=== PATIENT | female | born 1965 | race Caucasian/White ===

== ENCOUNTER → 2025-06-11 | Outpatient (CLI) | payer OTHER, SELFPAY ==
--- NOTE | 2025-06-11 11:00 | XR_ITS ---
Examination: CT soft tissue neck, with intravenous contrast. 2-D coronal reconstructions. 2-D sagittal reconstructions. Date and time of exam :June 11, 2025 1340 hours INDICATIONS: Palpable lump left side of the neck note is beginning December 2024. CTDI: vol (mGy):10.7 DLP: (mGycm):296 Technique: 1.25 mm axial sections of the neck of the obtained. Coronal and sagittal reconstructions have been obtained. Intravenous contrast administered 50 cc Isovue-[id number]. Low dose protocols were performed. One or more of the following dose reduction techniques were used; automated exposure control, adjustment of the mA and/or KV according to patient size, use of iterative reconstruction technique. Findings: Maxillary antra are clear Symmetrical submandibular glands There are bilateral cervical lymph nodes, the largest in the left carotid triangle region is 11 mm right carotid triangle region 9 mm Submental lymph nodes, the largest on the left side is 10 mm on the right side 9 mm Symmetrical submandibular glands The larynx appears normal Calcified 10 mm left thyroid nodule Normal epiglottis IMPRESSION: Significant cervical lymphadenopathy as above, clinical correlation advised
== END | disposition home or self-care (01) ==
PROVIDERS: PCP Nurse Practitioner Family; Referring Provider Nurse Practitioner Family; Visit Provider Nurse Practitioner Family
DX: R59.0 Localized enlarged lymph nodes (principal)
CPT/HCPCS: 70491; A4649; Q9967